=== PATIENT | male | born 1950 | race Caucasian/White ===

== ENCOUNTER 2019-02-06 07:34 | Emergency (ER) | payer MEDICAID, OTHER ==
[~2019-02-06] VITALS: Ht 177.8 cm; Wt 85.0 kg
[~2019-02-06 07:34] MED LIST: ASPI-1160 PO; ATOR-2 PO; CLOP75TA33 PO; LISI-186 PO; METO-396 PO
[2019-02-06 10:24] VITALS: BP 110/68
== END 2019-02-06 10:04 | disposition home or self-care (01) ==
LOC: ER 08:10
DX: K04.7 Periapical abscess without sinus (principal); K08.89 Other specified disorders of teeth and supporting structures; I25.10 Atherosclerotic heart disease of native coronary artery without angina pectoris; I51.9 Heart disease, unspecified; Z95.5 Presence of coronary angioplasty implant and graft; Z79.899 Other long term (current) drug therapy; Z79.82 Long term (current) use of aspirin
CPT/HCPCS: 99283